=== PATIENT | male | born 1950 | race Native Hawaiian/Other Pacific Islander ===

== ENCOUNTER 2016-08-19 13:34 | Outpatient (CLI) | payer OTHER ==
[~2016-08-19 13:34] MED LIST: AMLO5TAB; AMLO5TAB PO; DIGO0.1230 PO; FURO40TA93; FURO40TA93 PO; GLIP5TAB65; GLIP5TAB65 PO; LISI20TA11; LISI20TA11 PO; METOPROL TAR25 MG; METOPROL TAR25 MG PO; PRAVACHOL80 MG; PRAVACHOL80 MG PO; XARELTO15 MG; XARELTO15 MG PO
[2016-08-19] MEDS ORDERED: CELE200C2 PO (14:23)
[2016-08-19] MEDS ORDERED: AMLO2.5T PO (14:23)
[2016-08-19] MEDS ORDERED: DIGOX250 MCG PO (14:23)
[2016-08-19] MEDS ORDERED: POTASSIUM CHLO20 ME1 PO (14:26)
[2016-08-19] MEDS ORDERED: LANTUS100 MG/ML SC (14:27)
[2016-08-19] MEDS ORDERED: PRAVACHOL20 MG PO (14:29)
== END 2016-08-19 13:36 | disposition short-term general hospital (02) ==
LOC: AMB 13:34
DX: R07.89 Other chest pain (principal); M79.602 Pain in left arm
CPT/HCPCS: A0425; A0427

== ENCOUNTER 2016-09-19 14:27 | Observation (INO) | payer OTHER ==
[~2016-09-19] VITALS: Ht 172.7 cm; Wt 94.8 kg
[2016-09-19] VITALS (16 sets, daily range): BP systolic 108–171; BP diastolic 63–105; TEMP 97–98.2; Ht 172.7 cm; Wt 94.8 kg
[~2016-09-19 14:27] MED LIST changes: +AMLO2.5T PO; +CELE200C2 PO; +DIGOX250 MCG PO; +LANTUS100 MG/ML SC; +POTASSIUM CHLO20 ME1 PO; +PRAVACHOL20 MG PO
[2016-09-19 14:55] LABS: POTASSIUM 2.9 mmol/L (3.6-5.2)
[2016-09-19 15:04] LABS: PLATELET COUNT 158 K/uL (142-355)
[2016-09-19 15:14] LABS: PARTIAL THROMBOPLASTIN TIME 22.6 SECONDS (24.5-33.6)
== END 2016-09-19 23:45 | disposition short-term general hospital (02) ==
LOC: ED 14:27 → ICU 15:30
DX: R07.89 Other chest pain (principal); I48.91 Unspecified atrial fibrillation; E87.6 Hypokalemia; E11.9 Type 2 diabetes mellitus without complications; M54.89 Other dorsalgia; E88.09 Other disorders of plasma-protein metabolism, not elsewhere classified; I10 Essential (primary) hypertension; R97.20 Elevated prostate specific antigen [PSA]
CPT/HCPCS: 36415; 36591; 80053; 82550; 82962; 84484; 85027; 85610; 85730; 86318; 93005; 94760; 96372; 99220; 99285; G0378

== ENCOUNTER 2016-09-19 23:51 | Outpatient (CLI) | payer OTHER | END 2016-09-20 02:01 | disposition short-term general hospital (02) | LOC: AMB 23:51 | DX: R07.89 Other chest pain (principal); I48.91 Unspecified atrial fibrillation; E87.6 Hypokalemia; E11.9 Type 2 diabetes mellitus without complications; M54.89 Other dorsalgia; E88.09 Other disorders of plasma-protein metabolism, not elsewhere classified; I10 Essential (primary) hypertension; R97.20 Elevated prostate specific antigen [PSA] | CPT/HCPCS: A0425; A0427 ==

== ENCOUNTER 2016-12-06 12:37 | Outpatient (CLI) | payer OTHER | END 2016-12-06 13:40 | disposition home or self-care (01) | LOC: LABW 12:37 | PROVIDERS: Nurse Practitioner Adult Health | DX: I25.10 Atherosclerotic heart disease of native coronary artery without angina pectoris (principal); E78.2 Mixed hyperlipidemia; Z79.899 Other long term (current) drug therapy; Z51.81 Encounter for therapeutic drug level monitoring | CPT/HCPCS: 36415; 80061; 80076 ==

== ENCOUNTER 2017-05-29 12:55 | Outpatient (CLI) | payer OTHER | END 2017-05-29 13:55 | disposition home or self-care (01) | LOC: LABW 12:55 | PROVIDERS: Nurse Practitioner Adult Health | DX: E78.2 Mixed hyperlipidemia (principal); Z79.899 Other long term (current) drug therapy; Z51.81 Encounter for therapeutic drug level monitoring | CPT/HCPCS: 36415; 80061; 80076 ==

== ENCOUNTER 2017-08-24 21:07 | Emergency (ER) | payer OTHER ==
[~2017-08-24] VITALS: Ht 172.7 cm; Wt 94.3 kg
[2017-08-24 21:55] VITALS: BP 158/67; TEMP 98.6
== END 2017-08-24 21:59 | disposition home or self-care (01) ==
LOC: ED 21:07
DX: L98.8 Other specified disorders of the skin and subcutaneous tissue (principal)
CPT/HCPCS: 99282

== ENCOUNTER 2018-05-01 15:01 | Outpatient (CLI) | payer OTHER ==
[2018-05-01 15:28] LABS: PLATELET COUNT 141 K/uL (142-355)
== END 2018-05-01 19:20 | disposition home or self-care (01) ==
LOC: RAD 15:01
PROVIDERS: Nurse Practitioner Family
DX: R06.02 Shortness of breath (principal)
CPT/HCPCS: 80053; 83880; 85027

== ENCOUNTER 2018-07-13 01:38 | Outpatient (CLI) | payer OTHER | END 2018-07-13 01:58 | disposition short-term general hospital (02) | LOC: AMB 01:38 | DX: R07.89 Other chest pain (principal); R06.02 Shortness of breath | CPT/HCPCS: A0425; A0427 ==

== ENCOUNTER 2018-08-03 02:47 | Emergency (ER) | payer OTHER ==
[~2018-08-03] VITALS: Ht 172.7 cm; Wt 93.4 kg
[2018-08-03 04:12] LABS: PLATELET COUNT 265 K/uL (142-355)
[2018-08-03 04:29] LABS: POTASSIUM 3.6 mmol/L (3.6-5.2)
[2018-08-03 23:14] VITALS: BP 162/95; TEMP 98.2
== END 2018-08-03 23:20 | disposition short-term general hospital (02) ==
LOC: ED 02:47
PROVIDERS: Family Medicine
DX: R07.89 Other chest pain (principal); R79.89 Other specified abnormal findings of blood chemistry; I48.91 Unspecified atrial fibrillation; R22.43 Localized swelling, mass and lump, lower limb, bilateral; I50.9 Heart failure, unspecified
CPT/HCPCS: 36415; 80053; 81000; 82550; 83880; 84484; 85027; 93005; 96374; 99284; J2405

== ENCOUNTER 2018-08-21 16:29 | Observation (INO) | payer OTHER ==
[~2018-08-21] VITALS: Ht 167.6 cm; Wt 92.7 kg
[2018-08-21] VITALS (7 sets, daily range): BP systolic 104–136; BP diastolic 47–64; TEMP 98
[2018-08-21 18:35] LABS: PLATELET COUNT 143 K/uL (142-355)
[2018-08-21 19:22] LABS: POTASSIUM 3.5 mmol/L (3.6-5.2)
[2018-08-22] VITALS: BP 111/80; TEMP 98.9
[2018-08-22 00:11] VITALS: BP 113/41; TEMP 97.7
[2018-08-22] MEDS ORDERED: CARV6.25 PO (00:36)
[2018-08-22] MEDS ORDERED: NITR0.4S2 SL (00:37)
[2018-08-22] MEDS ORDERED: CLOP75TA2 PO (00:38)
[2018-08-22] MEDS ORDERED: ISOS30TA17 PO (00:38)
[2018-08-22] MEDS ORDERED: PRAVACHOL20 MG PO (00:39)
[2018-08-22] MEDS ORDERED: LISI10TA11 PO (00:40)
[2018-08-22] MEDS ORDERED: TEMA15CA19 PO (00:41)
[2018-08-22] MEDS ORDERED: ASA LOW DOSE81 MG PO (00:41)
[2018-08-22] MEDS ORDERED: SPIRONOLACT25 MG PO (00:42)
[2018-08-22] MEDS ORDERED: MECLIZINE25 MG PO (00:42)
[2018-08-22 04:00] VITALS: BP 125/51; TEMP 99
[2018-08-22 10:19] LABS: PLATELET COUNT 192 K/uL (142-355)
[2018-08-22 10:42] LABS: POTASSIUM 3.6 mmol/L (3.6-5.2)
== END 2018-08-22 10:54 | disposition short-term general hospital (02) ==
LOC: ED 16:29 → MED/SURG 19:55
PROVIDERS: ADMIT Emergency Medicine
DX: R06.09 Other forms of dyspnea (principal); I25.10 Atherosclerotic heart disease of native coronary artery without angina pectoris; E78.49 Other hyperlipidemia; K21.9 Gastro-esophageal reflux disease without esophagitis; M15.8 Other polyosteoarthritis; E11.22 Type 2 diabetes mellitus with diabetic chronic kidney disease; I13.0 Hypertensive heart and chronic kidney disease with heart failure and stage 1 through stage 4 chronic kidney disease, or unspecified chronic kidney disease; N18.4 Chronic kidney disease, stage 4 (severe); I48.2 Chronic atrial fibrillation; R79.89 Other specified abnormal findings of blood chemistry
CPT/HCPCS: 36415; 80048; 80053; 82550; 82553; 83735; 83880; 84484; 85027; 85379; 93005; 94760; 99220; 99284; G0378; J1940

== ENCOUNTER 2018-08-22 11:14 | Outpatient (CLI) | payer OTHER ==
[~2018-08-22 11:14] MED LIST changes: +ASA LOW DOSE81 MG PO; +CARV6.25 PO; +CLOP75TA2 PO; +ISOS30TA17 PO; +LISI10TA11 PO; +MECLIZINE25 MG PO; +NITR0.4S2 SL; +SPIRONOLACT25 MG PO; +TEMA15CA19 PO
== END 2018-08-22 11:44 | disposition short-term general hospital (02) ==
LOC: AMB 11:14
DX: R06.09 Other forms of dyspnea (principal); I25.10 Atherosclerotic heart disease of native coronary artery without angina pectoris; E78.49 Other hyperlipidemia; K21.9 Gastro-esophageal reflux disease without esophagitis; M15.8 Other polyosteoarthritis; E11.22 Type 2 diabetes mellitus with diabetic chronic kidney disease; I13.0 Hypertensive heart and chronic kidney disease with heart failure and stage 1 through stage 4 chronic kidney disease, or unspecified chronic kidney disease; N18.4 Chronic kidney disease, stage 4 (severe); I48.2 Chronic atrial fibrillation; R79.89 Other specified abnormal findings of blood chemistry
CPT/HCPCS: A0425; A0427

== ENCOUNTER 2018-09-22 06:34 | Emergency (ER) | payer OTHER ==
[~2018-09-22] VITALS: Ht 172.7 cm; Wt 86.6 kg
[2018-09-22 07:14] LABS: PLATELET COUNT 227 K/uL (142-355)
[2018-09-22 07:28] LABS: POTASSIUM 3.6 mmol/L (3.6-5.2)
[2018-09-22 08:40] VITALS: BP 150/85; TEMP 98
== END 2018-09-22 08:47 | disposition home or self-care (01) ==
LOC: ED 06:34
PROVIDERS: Internal Medicine
DX: I50.9 Heart failure, unspecified (principal); R06.02 Shortness of breath; N28.9 Disorder of kidney and ureter, unspecified; R79.89 Other specified abnormal findings of blood chemistry; I48.91 Unspecified atrial fibrillation
CPT/HCPCS: 36415; 80053; 81000; 82550; 84484; 85027; 85379; 93005; 99283

== ENCOUNTER 2018-10-02 22:57 | Outpatient (CLI) | payer OTHER ==
[2018-10-02] MEDS ORDERED: SEROQUEL50 MG PO (23:38)
[2018-10-02] MEDS ORDERED: SPIRONOLACT25 MG PO (23:39)
[2018-10-02] MEDS ORDERED: SEROQUEL25 MG PO (23:40)
== END 2018-10-02 23:09 | disposition short-term general hospital (02) ==
LOC: AMB 22:57
DX: R06.02 Shortness of breath (principal)
CPT/HCPCS: A0425; A0427

== ENCOUNTER 2018-10-02 23:12 | Emergency (ER) | payer OTHER ==
[~2018-10-02] VITALS: Ht 172.7 cm; Wt 87.1 kg
[2018-10-02] MEDS ORDERED: SEROQUEL50 MG PO (23:38)
[2018-10-02] MEDS ORDERED: SPIRONOLACT25 MG PO (23:39)
[2018-10-02] MEDS ORDERED: SEROQUEL25 MG PO (23:40)
[2018-10-02 23:45] LABS: PLATELET COUNT 192 K/uL (142-355)
[2018-10-02 23:48] LABS: POTASSIUM 3.2 mmol/L (3.6-5.2)
[2018-10-03 08:31] VITALS: BP 104/69; TEMP 98.6
== END 2018-10-03 08:36 | disposition short-term general hospital (02) ==
LOC: ED 23:12
PROVIDERS: Emergency Medicine
DX: J18.8 Other pneumonia, unspecified organism (principal); I50.9 Heart failure, unspecified
CPT/HCPCS: 36415; 80053; 80162; 83605; 83735; 84484; 85027; 87040; 87502; 93005; 96365; 96366; 96375; 99284; J0696; J2405; J3475

== ENCOUNTER 2018-10-03 08:42 | Outpatient (CLI) | payer OTHER ==
[~2018-10-03 08:42] MED LIST changes: +SEROQUEL25 MG PO; +SEROQUEL50 MG PO
== END 2018-10-03 09:18 | disposition short-term general hospital (02) ==
LOC: AMB 08:42
DX: R06.02 Shortness of breath (principal)
CPT/HCPCS: A0425; A0429

== ENCOUNTER 2018-10-06 11:56 | Outpatient (CLI) | payer OTHER | END 2018-10-06 20:19 | disposition home or self-care (01) | LOC: LABW 11:56 | DX: Z79.899 Other long term (current) drug therapy (principal); I48.0 Paroxysmal atrial fibrillation | CPT/HCPCS: 36415; 80076; 84436; 84443; 84479 ==

== ENCOUNTER 2018-10-16 20:10 | Inpatient (IN) | payer OTHER ==
[~2018-10-16] VITALS: Ht 172.7 cm; Wt 98.0 kg
[2018-10-16 20:23] VITALS: BP 129/78; TEMP 99
[2018-10-16 21:59] LABS: PLATELET COUNT 217 K/uL (142-355)
[2018-10-16 22:05] LABS: POTASSIUM 3.8 mmol/L (3.6-5.2); SODIUM 141 mmol/L (136-145)
[2018-10-17 01:52] VITALS: BP 133/74; TEMP 97.8; Ht 172.7 cm; Wt 98.0 kg
[2018-10-17] MEDS ORDERED: AMIODARONE HYD200 MG PO (02:43)
[2018-10-17] MEDS ORDERED: KLOR-CON M2020 MEQ PO (02:45)
[2018-10-17] MEDS ORDERED: SPIRONOLACT50 MG PO (02:49)
[2018-10-17] MEDS ORDERED: CARV25TA PO (02:51)
[2018-10-17] MEDS ORDERED: XARELTO15 MG PO (02:52)
[2018-10-17 04:00] VITALS: BP 124/76; TEMP 98.2
[2018-10-17 08:00] VITALS: BP 136/81; TEMP 97.6
[2018-10-17 12:00] VITALS: BP 141/85; TEMP 97.9
[2018-10-17 16:00] VITALS: BP 135/83; TEMP 97.6
[2018-10-17 19:52] VITALS: BP 130/83; TEMP 97.8
[2018-10-18] VITALS (7 sets, daily range): BP systolic 111–130; BP diastolic 67–89; TEMP 97.4–97.9
[2018-10-18 05:43] LABS: PLATELET COUNT 170 K/uL (142-355)
[2018-10-18 06:39] LABS: POTASSIUM 3.9 mmol/L (3.6-5.2)
[2018-10-19 04:00] VITALS: BP 107/67; TEMP 97.6
[2018-10-19 05:54] LABS: PLATELET COUNT 281 K/uL (142-355)
[2018-10-19 06:10] LABS: POTASSIUM 4.1 mmol/L (3.6-5.2)
[2018-10-19 08:00] VITALS: BP 119/74; TEMP 97.6
[2018-10-19 12:00] VITALS: BP 114/69; TEMP 97.1
[2018-10-19 16:00] VITALS: BP 121/81; TEMP 97.4
[2018-10-19 20:00] VITALS: BP 111/62; TEMP 97.4
[2018-10-20 00:27] VITALS: BP 122/60; TEMP 98.8
[2018-10-20 04:00] VITALS: BP 116/62; TEMP 98.8
[2018-10-20 06:10] LABS: PLATELET COUNT 232 K/uL (142-355)
[2018-10-20 06:19] LABS: POTASSIUM 4.4 mmol/L (3.6-5.2)
[2018-10-20 08:00] VITALS: BP 123/76; TEMP 97.4
[2018-10-20 12:00] VITALS: BP 139/70; TEMP 98.5
[2018-10-20 15:22] LABS: PLATELET COUNT 276 K/uL (142-355)
== END 2018-10-20 15:40 | disposition short-term general hospital (02) | DRG 291 ==
LOC: ED 20:10 → MED/SURG 23:15
PROVIDERS: Family Medicine; Internal Medicine; ADMIT Emergency Medicine
DX: I13.0 Hypertensive heart and chronic kidney disease with heart failure and stage 1 through stage 4 chronic kidney disease, or unspecified chronic kidney disease (principal); I50.21 Acute systolic (congestive) heart failure; N18.4 Chronic kidney disease, stage 4 (severe); I25.10 Atherosclerotic heart disease of native coronary artery without angina pectoris; I48.2 Chronic atrial fibrillation; F41.8 Other specified anxiety disorders; I25.2 Old myocardial infarction; E11.22 Type 2 diabetes mellitus with diabetic chronic kidney disease; R06.09 Other forms of dyspnea
CPT/HCPCS: 36415; 80053; 82550; 82553; 82805; 82948; 83880; 84484; 85027; 93005; 93306; 94640; 94664; 94760; 96365; 96372; 96375; 99284; J1650; J1815; J1940; J2060; J2920

== ENCOUNTER 2018-10-20 15:45 | Outpatient (CLI) | payer OTHER ==
[~2018-10-20 15:45] MED LIST changes: +AMIODARONE HYD200 MG PO; +CARV25TA PO; +KLOR-CON M2020 MEQ PO; +SPIRONOLACT50 MG PO
== END 2018-10-20 16:45 | disposition short-term general hospital (02) ==
LOC: AMB 15:45
DX: I50.9 Heart failure, unspecified (principal); R07.89 Other chest pain
CPT/HCPCS: A0425; A0429

== ENCOUNTER 2018-11-26 17:01 | Outpatient (CLI) | payer OTHER | END 2018-11-26 19:47 | disposition home or self-care (01) | LOC: LAB 17:01 | DX: Z79.899 Other long term (current) drug therapy (principal) | CPT/HCPCS: 80076; 84436; 84443; 84479 ==

== ENCOUNTER 2018-12-27 19:30 | Emergency (ER) | payer OTHER ==
[~2018-12-27] VITALS: Ht 172.7 cm; Wt 83.5 kg
[2018-12-27 20:06] LABS: PLATELET COUNT 310 K/uL (142-355)
[2018-12-27 20:22] LABS: PARTIAL THROMBOPLASTIN TIME 23.7 SECONDS (24.5-33.6)
[2018-12-27 20:23] LABS: POTASSIUM 5.8 mmol/L (3.6-5.2); SODIUM 132 mmol/L (136-145)
[2018-12-27 22:43] VITALS: BP 90/46; TEMP 98.2
== END 2018-12-27 22:43 | disposition short-term general hospital (02) ==
LOC: ED 19:30
PROVIDERS: Hospitalist
DX: N17.9 Acute kidney failure, unspecified (principal); R39.2 Extrarenal uremia; I95.89 Other hypotension; Z95.810 Presence of automatic (implantable) cardiac defibrillator; Z95.0 Presence of cardiac pacemaker; Z98.890 Other specified postprocedural states; I48.91 Unspecified atrial fibrillation; I48.92 Unspecified atrial flutter
CPT/HCPCS: 36415; 51702; 80053; 81000; 82550; 83880; 84484; 85027; 85610; 85730; 93005; 96360; 96361; 99284

== ENCOUNTER 2018-12-27 22:40 | Outpatient (CLI) | payer OTHER | END 2018-12-27 23:20 | disposition short-term general hospital (02) | LOC: AMB 22:40 | DX: N17.9 Acute kidney failure, unspecified (principal); I95.89 Other hypotension | CPT/HCPCS: A0425; A0429 ==

== ENCOUNTER 2019-01-14 11:09 | Outpatient (CLI) | payer OTHER ==
[2019-01-14 12:18] LABS: POTASSIUM 5.3 mmol/L (3.6-5.2)
== END 2019-01-14 20:19 | disposition home or self-care (01) ==
LOC: LAB 11:09
PROVIDERS: Nurse Practitioner Adult Health
DX: I25.10 Atherosclerotic heart disease of native coronary artery without angina pectoris (principal); E78.2 Mixed hyperlipidemia; I48.0 Paroxysmal atrial fibrillation; Z79.899 Other long term (current) drug therapy
CPT/HCPCS: 36415; 80048; 80061; 80076; 84436; 84443; 84479

== ENCOUNTER 2019-01-26 22:09 | Emergency (ER) | payer OTHER ==
[~2019-01-26] VITALS: Ht 172.7 cm; Wt 86.6 kg
[2019-01-26 23:48] LABS: PLATELET COUNT 256 K/uL (142-355)
[2019-01-26 23:55] LABS: POTASSIUM 3.7 mmol/L (3.6-5.2)
[2019-01-27 00:06] LABS: PARTIAL THROMBOPLASTIN TIME 29.3 SECONDS (24.5-33.6)
[2019-01-27 00:28] VITALS: BP 122/74; TEMP 98
== END 2019-01-27 00:35 | disposition home or self-care (01) ==
LOC: ED 22:09
PROVIDERS: Hospitalist
PROC: 2Y41X5Z Packing of Nasal Region using Packing Material (ICD-10-PCS; principal; 2019-01-26)
DX: R04.0 Epistaxis (principal); N18.9 Chronic kidney disease, unspecified
CPT/HCPCS: 36415; 80048; 85027; 85610; 85730; 99283

== ENCOUNTER 2019-02-02 11:48 | Emergency (ER) | payer OTHER ==
[~2019-02-02] VITALS: Ht 172.7 cm; Wt 83.5 kg
[2019-02-02 11:48] VITALS: TEMP 97.8
[2019-02-02 12:56] LABS: PLATELET COUNT 229 K/uL (142-355)
[2019-02-02 13:04] LABS: SODIUM 139 mmol/L (136-145)
[2019-02-02 14:00] VITALS: BP 111/60
== END 2019-02-02 14:03 | disposition home or self-care (01) ==
LOC: ED 11:48
PROVIDERS: Emergency Medicine
DX: N18.9 Chronic kidney disease, unspecified (principal); D63.1 Anemia in chronic kidney disease; S50.812A Abrasion of left forearm, initial encounter; S50.12XA Contusion of left forearm, initial encounter; I48.92 Unspecified atrial flutter; I50.9 Heart failure, unspecified; W18.39XA Other fall on same level, initial encounter; Y92.89 Other specified places as the place of occurrence of the external cause
CPT/HCPCS: 80053; 83880; 84484; 85027; 93005; 99283

== ENCOUNTER 2019-02-03 12:04 | Emergency (ER) | payer OTHER ==
[~2019-02-03] VITALS: Ht 172.7 cm; Wt 83.5 kg
[2019-02-03 12:16] VITALS: TEMP 100
[2019-02-03 12:44] LABS: PLATELET COUNT 178 K/uL (142-355)
[2019-02-03 12:56] LABS: POTASSIUM 2.9 mmol/L (3.6-5.2); SODIUM 138 mmol/L (136-145)
[2019-02-03 13:02] LABS: PARTIAL THROMBOPLASTIN TIME 26.5 SECONDS (24.5-33.6)
[2019-02-03 16:08] VITALS: BP 126/74
== END 2019-02-03 16:08 | disposition home or self-care (01) ==
LOC: ED 12:04
PROVIDERS: Emergency Medicine
DX: I73.9 Peripheral vascular disease, unspecified (principal); M79.604 Pain in right leg; I48.91 Unspecified atrial fibrillation
CPT/HCPCS: 80053; 82550; 82553; 84484; 85027; 85610; 85730; 93005; 99283

== ENCOUNTER 2019-02-08 08:51 | Outpatient (CLI) | payer OTHER | END 2019-02-08 23:59 | disposition home or self-care (01) | LOC: US 08:51 | DX: R60.0 Localized edema (principal); M79.605 Pain in left leg ==

== ENCOUNTER 2021-01-11 12:18 | Emergency (ER) | payer OTHER ==
[~2021-01-11] VITALS: Ht 172.7 cm; Wt 90.7 kg
[2021-01-11 12:18] VITALS: BP 132/74; TEMP 97.7
[2021-01-11 12:49] LABS: PLATELET COUNT 300 K/uL (142-355)
[2021-01-11 12:56] LABS: POTASSIUM 3.9 mmol/L (3.6-5.2)
[2021-01-11 13:07] LABS: PARTIAL THROMBOPLASTIN TIME 25.2 SECONDS (24.5-33.6)
[2021-01-11] MEDS ORDERED: SPIR50TA8 PO (22:22)
[2021-01-11] MEDS ORDERED: ALLO100T22 PO (22:23)
[2021-01-11] MEDS ORDERED: ARTIFICIA2 OPTH (22:25)
[2021-01-11] MEDS ORDERED: AMOX875T8 PO (22:29)
[2021-01-11] MEDS ORDERED: BUSPIRONE5 MG PO (22:33)
[2021-01-11] MEDS ORDERED: DEPAKOTE DR PO (22:36)
[2021-01-11] MEDS ORDERED: LANOXIN125 MCG PO (22:38)
[2021-01-11] MEDS ORDERED: ELIQUIS5 MG PO (22:39)
[2021-01-11] MEDS ORDERED: LEXAPRO20 MG PO (22:40)
[2021-01-11] MEDS ORDERED: ENTRESTO 24-261 TAB PO (22:40)
[2021-01-11] MEDS ORDERED: FINA5TAB2 PO (22:41)
[2021-01-11] MEDS ORDERED: FURO40TA93 PO (22:43)
[2021-01-11] MEDS ORDERED: INSU300I SC (22:44)
[2021-01-11] MEDS ORDERED: NOVOLOG100 UNIT/M SC (22:46)
[2021-01-11] MEDS ORDERED: EUTHYROX50 MCG PO (22:50)
[2021-01-11] MEDS ORDERED: PANTOPRAZOLE SO20 MG PO (22:51)
[2021-01-11] MEDS ORDERED: PRAVACHOL20 MG PO (22:52)
[2021-01-11] MEDS ORDERED: TRAZODONE HYDRO50 MG PO (22:53)
== END 2021-01-11 13:56 | disposition still patient (30) ==
LOC: ED 12:24
PROVIDERS: Emergency Medicine
DX: R45.1 Restlessness and agitation (principal); I48.92 Unspecified atrial flutter; R77.8 Other specified abnormalities of plasma proteins; N18.9 Chronic kidney disease, unspecified; I50.9 Heart failure, unspecified; Z11.52 Encounter for screening for COVID-19; Z04.6 Encounter for general psychiatric examination, requested by authority
CPT/HCPCS: 80053; 80307; 80320; 80329; 81000; 83880; 84484; 85027; 85610; 85730; 87635; 93005; 99283; U0003